=== PATIENT | female | born 1955 | race Asian ===

== ENCOUNTER 2017-06-13 09:34 | Emergency (ER) | payer OTHER ==
[~2017-06-13] VITALS: Ht 154.9 cm; Wt 54.5 kg
[2017-06-13] MEDS ORDERED: OMEP10 PO (09:45)
[2017-06-13] MEDS ORDERED: DICYCLOMINE HCL 20 MG TABLET PO ONE (11:15)
[2017-06-13 11:24] LABS: ANION GAP 8 mmol/L (8-16); CALCIUM, TOTAL 8.7 mg/dL (8.8-10.5); CARBON DIOXIDE 27 mmol/L (22-29); CHLORIDE 103 mmol/L (98-107); CREATININE 0.63 mg/dL (0.60-1.30); EOSINOPHILS % (AUTO) 3.7 % (1.0-6.0); GLOMERULAR FILTR. RATE CALC > 60 mL/min (>60); HEMATOCRIT 35.8 % (36-46); LYMPHOCYTES # (AUTO) 0.7 K/uL (1.0-4.8); LYMPHOCYTES % (AUTO) 5.2 % (22.0-44.0); MEAN CORPUSCULAR HEMOGLOBIN 32.3 pg (26.0-34.0); MEAN CORPUSCULAR HGB CONC 36.3 G/dL (31.0-37.0); MEAN CORPUSCULAR VOLUME 89 fL (80-100); MONOCYTES # (AUTO) 0.4 K/uL (0.1-1.0); MONOCYTES % (AUTO) 3.2 % (2.0-9.0); NEUTROPHILS # (AUTO) 11.4 K/uL (1.8-7.7); NEUTROPHILS % (AUTO) 87.9 % (40.0-70.0); PLATELET COUNT (AUTO) 201 K/uL (150-450); POTASSIUM 3.4 mmol/L (3.5-5.1); RED BLOOD CELL COUNT(AUTO) 4.02 MIL/uL (4.00-5.20); RED CELL DISTRIBUTION WIDTH 15.7 % (11.5-14.5); SODIUM SERUM 138 mmol/L (136-145); UREA NITROGEN, BLOOD 13 mg/dL (7-18); WHITE BLOOD COUNT (AUTO) 12.9 K/uL (4.5-11.0)
[2017-06-13 11:30] LABS: ALANINE AMINOTRANSFERASE 27 U/L (12-78); ALBUMIN 4.1 g/dL (3.4-5.0); ASPARTATE AMINOTRANSFERASE 18 U/L (15-37); BILIRUBIN,TOTAL 1.8 mg/dL (0.1-1.0); TOTAL PROTEIN, SERUM 7.4 g/dL (6.4-8.2)
[2017-06-13] MEDS ORDERED: MAG HYDROX/AL HYDROX/SIMETH ES 30 ML SUSPENSION UDCUP PO ONE (11:45)
[2017-06-13 12:49] VITALS: BP 131/60
== END 2017-06-13 13:06 | disposition home or self-care (01) ==
LOC: EMS 09:36
DX: K21.9 Gastro-esophageal reflux disease without esophagitis (principal); K30 Functional dyspepsia; R07.89 Other chest pain; E78.00 Pure hypercholesterolemia, unspecified; Z88.1 Allergy status to other antibiotic agents
CPT/HCPCS: 71020; 93005; 99285